=== PATIENT | male | born 1990 | race Caucasian/White ===

== ENCOUNTER 2017-11-06 16:23 | Emergency (ER) | payer BC ==
[~2017-11-06] VITALS: Ht 180.3 cm; Wt 106.0 kg
[2017-11-06 16:33] VITALS: BP 151/76; PULSE 86; RESP 16; TEMP 99.3; O2SAT 96
[2017-11-06] MEDS ORDERED: IBUP1TAB7 PO (18:34)
--- NOTE | 2017-11-06 18:34 | PD ---
HPI Chief Complaint: Pain: Acute or Chronic Time Seen by Provider: 18:26 Travel History International Travel<30 days: No Contact w/Intl Traveler<30days: No Traveled to known affect area: No History of Present Illness HPI 26-year-old male here with chief complaint of "garcia splints". He reports last night after running he had pain to bilateral shins and believes the sessions once. He reports the pain was relieved with rest, ice, elevation. He took one dose of ibuprofen. Today he has mild discomfort in the anterior shins with walking. Denies any injury or trauma. Symptom severity is mild. Aggravated by running. Relieved with rest. PFSH Past Medical History Medical History: Denies Significant Hx Diminished Hearing: No Tetanus Vaccination: Unknown Past Surgical History Appendectomy: Yes Social History Alcohol Use: Yes (SOC) Tobacco Use: No Substance Use: No Allergies-Medications (Allergen,Severity, Reaction): Coded Allergies: No Known Allergies (Unverified , 11/06/17) Reported Meds & Prescriptions Reported Meds & Active Scripts Active Ibuprofen 800 Mg Tab 800 Mg PO Q6HR PRN Review of Systems Except as stated in HPI: all other systems reviewed are Neg General / Constitutional: No: Fever Physical Exam Narrative GENERAL: Alert and well-appearing 26-year-old male SKIN: Warm and dry. HEAD: Normocephalic. EYES: No injection or drainage. NECK: Supple CARDIOVASCULAR: Regular rate and rhythm RESPIRATORY: Breath sounds equal bilaterally. No accessory muscle use. GASTROINTESTINAL: Abdomen soft, non-tender, nondistended. MUSCULOSKELETAL: No cyanosis, or edema. No bony tenderness over the tibias. Palpable distal pulses. Normal sensation. Data Data Last Documented VS Vital Signs Date Time Temp Pulse Resp B/P (MAP) Pulse Ox O2 Delivery O2 Flow Rate FiO2 11/06/17 16:33 99.3 86 16 151/76 (101) 96 Orders Orders Ed Discharge Order (11/06/17 18:34) MDM Medical Decision Making Medical Screen Exam Complete: Yes Emergency Medical Condition: Yes Differential Diagnosis Shinsplints, tibia stress fracture unlikely, other Narrative Course 26-year-old male here with shinsplints. He was instructed to rest, ice, elevate the extremities. Avoid activities that cause pain. Follow-up with [facility] Diagnosis Primary Impression: Pain in the shins Qualified Codes: M79.669 - Pain in unspecified lower leg Referrals: Rafal Ulloa MD,Herson Salcido MD, MD Orthopedist Additional Instructions: Avoid activities that cause flareups of the garcia splints. Rest, ice, elevate. Ibuprofen 800 mg as needed for pain Scripts Ibuprofen (Ibuprofen) 800 Mg Tab 800 MG PO Q6HR Y for PAIN, #40 TAB 0 Refills Prov: Priscilla Taylor 11/06/17 Disposition: 01 DISCHARGE HOME Condition: Stable Priscilla Taylor November 06, 2017 18:34
== END 2017-11-06 18:42 | disposition home or self-care (01) ==
LOC: PHED 16:23 → PHEFT 18:42
DX: M79.662 Pain in left lower leg (principal); M79.661 Pain in right lower leg
CPT/HCPCS: 99283